=== PATIENT | male | born 1975 | race Caucasian/White ===

== ENCOUNTER 2021-07-28 21:53 | Emergency (ER) | payer OTHER ==
[~2021-07-28 21:53] MED LIST: TYLENOL #31 EACH PO
[2021-07-28] MEDS ORDERED: MEDROL 4MG DOSEP4 MG PO (23:20)
== END 2021-07-28 23:40 | disposition home or self-care (01) ==
LOC: FER 21:53
DX: T78.40XA Allergy, unspecified, initial encounter (principal)
CPT/HCPCS: 99282; J1100

== ENCOUNTER 2021-12-26 21:21 | Emergency (ER) | payer OTHER ==
[~2021-12-26 21:21] MED LIST changes: +MEDROL 4MG DOSEP4 MG PO
[2021-12-26 21:59] LABS: BASOPHIL 0.5 % (0-2); EOSINOPHIL 1.9 % (0-5); HCT 40.9 % (42.0-52.0); MCH 30.6 pg (25.0-31.0); MCHC 34.2 g/dL (32.0-36.0); MCV 89.3 fL (78.0-100.0); MONOCYTE 10.6 % (0-12); MPV 9.7 fL (6.0-9.5); NEUTROPHIL 51.7 % (41-80); NRBC 0; PLT 179 K/uL (150-400); RBC 4.58 M/uL (4.70-6.00); RDW 12.3 % (11.5-14.0); WBC 4.2 K/uL (4.0-10.5)
[2021-12-26 22:00] LABS: LYMPHOCYTE 35.1 % (15-48)
[2021-12-26 22:07] LABS: INR 1.03 (0.9-1.2); PROTHROMBIN TIME 13.2 SECONDS (11.9-13.9); PTT 28.9 SECONDS (24.9-34.6)
[2021-12-26 22:15] LABS: LACTIC ACID 2.3 mmol/L (0.4-1.9)
[2021-12-26 22:20] LABS: ACETAMINOPHEN (TYLENOL) < 2.0 ug/mL (10.0-30.0); ALBUMIN 3.2 g/dL (3.4-5.0); ALKALINE PHOSHATASE 67 U/L (46-116); ALT 132 U/L (16-63); AST 88 U/L (15-37); BILIRUBIN - TOTAL 0.3 mg/dL (0.2-1.0); BUN 8 mg/dL (7-18); BUN/CREAT RATIO (CALC) 8.2 RATIO; CHLORIDE 105 mmol/L (98-107); CO2 (BICARBONATE) 28 mmol/L (21-32); CREATININE 0.97 mg/dL (0.67-1.17); GLOBULIN (CALCULATION) 3.4 g/dL; GLUCOSE 128 mg/dL (74-106); POTASSIUM 4.1 mmol/L (3.5-5.1); TOTAL PROTEIN 6.6 g/dL (6.4-8.2)
== END 2021-12-27 02:55 | disposition home or self-care (01) ==
LOC: FER 21:21
PROVIDERS: Internal Medicine
DX: R41.0 Disorientation, unspecified (principal); T50.905A Adverse effect of unspecified drugs, medicaments and biological substances, initial encounter
CPT/HCPCS: 36415; 80053; 82140; 82550; 83605; 84145; 84484; 85025; 85610; 85730; 87040; 93005; G0480; J2310; J7120